=== PATIENT | female | born 1950 | race Caucasian/White ===

== ENCOUNTER 2021-09-25 10:42 | Emergency (ER) | payer MEDICARE ==
[~2021-09-25] VITALS: Ht 160 cm; Wt 68.2 kg
[2021-09-25] MEDS ORDERED: LOSA1TAB40 PO (10:59)
[2021-09-25] MEDS ORDERED: ATOR20TA65 PO (12:42)
[2021-09-25] MEDS ORDERED: ONDANSETRON HCL 4 MG TABLET PO ONE (12:45)
[2021-09-25] MEDS ORDERED: ONDA-104 PO (15:30)
[2021-09-25 15:47] VITALS: BP 140/82
== END 2021-09-25 16:49 | disposition home or self-care (01) ==
LOC: EMS 10:45
DX: R51.9 Headache, unspecified (principal); R11.2 Nausea with vomiting, unspecified; F07.81 Postconcussional syndrome; I10 Essential (primary) hypertension
CPT/HCPCS: 99285; 70450; 72125; Q0162

== ENCOUNTER 2021-11-25 10:51 | Emergency (ER) | payer MEDICARE ==
[~2021-11-25] VITALS: Ht 160 cm; Wt 68.2 kg
[~2021-11-25 10:51] MED LIST: ATOR20TA65 PO; LOSA1TAB40 PO; ONDA-104 PO
[2021-11-25] MEDS ORDERED: AMOX250C4 PO (11:00)
[2021-11-25] MEDS ORDERED: ACETAMINOPHEN 500 MG TABLET PO ONE (12:00)
[2021-11-25] MEDS ORDERED: ONDANSETRON HCL 4 MG/2 ML VIAL IVP ONE (12:00)
[2021-11-25] MEDS ORDERED: DIPHENOXYLATE/ATROP 2.5-0.025 MG TABLET PO ONE (12:00)
[2021-11-25] MEDS ORDERED: SODIUM CHLORIDE 0.9% 2,000 ML IV ONE (12:00)
[2021-11-25 12:17] LABS: BASOPHILS % (AUTO) 0.1 % (0.0-2.0); EOSINOPHILS % (AUTO) 0 % (1.0-6.0); HEMATOCRIT 40.7 % (36-46); HEMOGLOBIN 13.6 g/dL (12.0-16.0); LYMPHOCYTES # (AUTO) 0.4 K/uL (1.0-4.8); LYMPHOCYTES % (AUTO) 4.8 % (22.0-44.0); MEAN CORPUSCULAR HEMOGLOBIN 29.9 pg (26.0-34.0); MEAN CORPUSCULAR HGB CONC 33.4 G/dL (31.0-37.0); MEAN CORPUSCULAR VOLUME 90 fL (80-100); MONOCYTES # (AUTO) 0.3 K/uL (0.1-1.0); MONOCYTES % (AUTO) 3.3 % (2.0-9.0); NEUTROPHILS # (AUTO) 8.4 K/uL (1.8-7.7); PLATELET COUNT (AUTO) 167 K/uL (150-450); RED BLOOD CELL COUNT(AUTO) 4.54 MIL/uL (4.00-5.20); RED CELL DISTRIBUTION WIDTH 12.7 % (11.5-14.5)
[2021-11-25 12:19] LABS: NEUTROPHILS % (AUTO) 91.8 % (40.0-70.0)
[2021-11-25 12:35] VITALS: BP 141/78
[2021-11-25 12:49] LABS: ANION GAP 7 mmol/L (8-16); CALCIUM, TOTAL 9.1 mg/dL (8.8-10.5); CARBON DIOXIDE 30 mmol/L (22-29); CHLORIDE 102 mmol/L (98-107); CREATININE 0.77 mg/dL (0.60-1.30); GLUCOSE,RANDOM 109 mg/dL (70-110); POTASSIUM 3.9 mmol/L (3.5-5.1); SODIUM SERUM 139 mmol/L (136-145); UREA NITROGEN, BLOOD 17 mg/dL (7-18)
[2021-11-25 12:50] LABS: GLOMERULAR FILTR. RATE CALC > 60 mL/min (>60)
[2021-11-25 12:53] LABS: ALANINE AMINOTRANSFERASE 20 U/L (12-78); ALBUMIN 3.7 g/dL (3.4-5.0); ALKALINE PHOSPHATASE 61 U/L (46-116); ASPARTATE AMINOTRANSFERASE 18 U/L (15-37); BILIRUBIN,TOTAL 0.6 mg/dL (0.1-1.0); LIPASE 82 U/L (73-393); TOTAL PROTEIN, SERUM 7.1 g/dL (6.4-8.2)
[2021-11-25] MEDS ORDERED: ONDA-104 PO (13:13)
[2021-11-25] MEDS ORDERED: DIPH-654 PO (13:13)
[2021-11-25] MEDS ORDERED: ACET-66 PO (13:13)
== END 2021-11-25 13:44 | disposition home or self-care (01) ==
LOC: EMS 10:53
DX: K52.9 Noninfective gastroenteritis and colitis, unspecified (principal); I10 Essential (primary) hypertension
CPT/HCPCS: 99284; 96374; 96361; 80053; 83690; 84484; 85025; 36415; 93005; J2405; J7030